=== PATIENT | male | born 2000 | race Caucasian/White ===

== ENCOUNTER → 2023-04-26 16:19 | Outpatient (CLI) | payer OTHER, SELFPAY ==
--- NOTE | ~2023-04-26 | XR_ITS ---
AP and oblique views of the SI joints CLINICAL HISTORY: Sacroiliitis FINDINGS: Right sacroiliac joint is unremarkable. Questionable minimal widening/irregularity left SI joint. Bilateral hip joints are intact. Soft tissues are unremarkable. IMPRESSION: Questionable minimal irregularity/widening of left SI joint, which could indicate unilateral sacroili itis. Consider MR for sensitive evaluation. Septic arthritis must be considered in the setting of a u nilateral sacroiliitis. Correlate clinically. Reviewed, dictated and finalized at location M. IMPRESSION: Questionable minimal irregularity/widening of left SI joint, which could indica te unilateral sacroiliitis. Consider MR for sensitive evaluation. Septic arthri tis must be considered in the setting of a unilateral sacroiliitis. Correlate c linically.
== END ==
PROVIDERS: PCP Pediatrics; Visit Provider Pediatrics
DX: M46.1 Sacroiliitis, not elsewhere classified (principal)
CPT/HCPCS: 72202